=== PATIENT | female | born 1995 | race African-American/Black ===

== ENCOUNTER 2017-07-04 14:13 | Emergency (ER) | payer OTHER ==
[~2017-07-04] VITALS: Ht 160 cm; Wt 46.2 kg
[2017-07-04 14:16] VITALS: TEMP 37.2; Ht 160 cm; Wt 46.2 kg
[2017-07-04] MEDS ORDERED: ACET-1256 PO (15:03)
[2017-07-04 15:08] LABS: HEMATOCRIT 33.3 % (37-47); HEMOGLOBIN 9.7 g/dL (12.0-16.0); MEAN CELL VOLUME 61.8 fL (80-100); MEAN CORPUSCULAR HGB CONC 29.1 g/dl (32-36); PLATELET COUNT 336 K/uL (130-400); RED CELL DISTRIBUTION WIDTH CV 19.2 % (11.5-14.5); RED CELL DISTRIBUTION WIDTH SD 42.6 fL (36.4-46.3); WHITE BLOOD COUNT 12.36 K/uL (4.8-10.8)
[2017-07-04 15:14] LABS: ALBUMIN 3.7 gm/dl (3.4-5.0); CALCIUM 9.1 mg/dl (8.5-10.1); CREATININE 1.26 mg/dl (0.60-1.20); POTASSIUM 3.5 mmol/L (3.5-5.1)
--- NOTE | 2017-07-04 15:14 | EMERGENCY ROOM VISIT NOTE ---
History Report prepared by Augustus: Errol Raygoza Under the Supervision of: Dr. Rob Cerna M.D. First contact with patient: 14:20 Chief Complaint: ABDOMINAL PAIN Stated Complaint: SEVERE STOMACH PAIN ON THE L SIDE FOR 3 DAYS Nursing Triage Summary: pt reports left abd pain started wednesday. denies any n/v/d/ History of Present Illness The patient is a 21 year old female who presents to the Emergency Room with complaints of constant, left sided lower abdominal pain beginning 3 days ago. She currently rates her discomfort a 6/10 in severity, but it has been as high as a 10/10 and has woken her from her sleep. The patient states her pain radiates to the left side of her back when she leans forward. She reports she avoids moving. The patient notes she took Tylenol two days ago, and it mildly alleviated the pain, but it would return. She states she tried Rolaids this morning for possible indigestion; they did not help her symptoms. The patient reports she developed a runny nose and clogged throat several days ago. She denies a previous history of these symptoms and a family history of bowel or OB/ LADLE FILLER problems. The patient notes she had surgery 7 years ago for an ear infection. She states her LNMP was 6 months ago, and it is typically irregular. The patient reports it is not normal for her irregularity to last six months. Pt denies LOC, headache, fevers, chills, diaphoresis, visual changes, neck pain , chest pain, breathing difficulties, nausea, vomiting, melena, hematochezia, urinary symptoms, numbness, weakness, lymphadenopathy, rash, joint problems, swelling or other complaints. Onset: 3 days ago Position: abdomen (LLQ) Symptom Intensity: 6/10 currently - 10/10 worst Timing: constant Modifying Factors (Worsening): movement (leaning forward) Modifying Factors (Relieving): tylenol (mildy) Associated Symptoms: + back pain (left lower) Note: Associated symptoms: runny nose and clogged throat Review of Systems See HPI for pertinent positives and negatives. A total of ten systems were reviewed and were otherwise negative. Past Medical & Surgical Medical Problems: (1) No Known Active Medical Problems Family History Patient reports no known family medical history. Social History Smoking Status: Never Smoker Marital Status: single Occupation Status: [employer] student Current/Historical Medications Scheduled Acetaminophen (Tylenol), 1,000 MG PO PRN UD Ciprofloxacin Hcl (Cipro), 500 MG PO BID Scheduled PRN Oxycodone Ir (Roxicodone Ir), 1-2 TAB PO Q4H PRN for Pain Allergies Coded Allergies: No Known Allergies (Unverified , 07/04/17) Physical Exam Vital Signs Date Time Temp Pulse Resp B/P (MAP) Pulse Ox O2 Delivery O2 Flow Rate FiO2 07/04/17 22:42 78 20 128/72 98 07/04/17 21:03 72 20 122/70 98 Room Air 07/04/17 19:08 72 20 123/73 98 Room Air 07/04/17 16:19 65 109/75 100 Room Air 07/04/17 14:16 37.2 88 18 121/72 99 Room Air Physical Exam GENERAL: Awake, alert, well-appearing, in no distress HENT: Normocephalic, atraumatic. Oropharynx unremarkable. EYES: Normal conjunctiva. Sclera non-icteric. NECK: Supple. No nuchal rigidity. FROM. No masses. RESPIRATORY: Clear to auscultation. No wheezes. No rales. Normal respiratory effort. CARDIAC: Normal rate. Normal rhythm. No murmurs. No rubs. Extremities warm and well perfused. Pulses equal. No JVD. GI: Soft, non-distended. No tenderness to palpation. No rebound or guarding. No masses. RECTAL: Deferred. MUSCULOSKELETAL: Atraumatic. Chest examination reveals no tenderness. The back is symmetrical on inspection without obvious abnormality. Left flank is tender to palpation. There is left CVA tenderness to palpation. No joint edema. LOWER EXTREMITIES: Calves are equal size bilaterally and non-tender. No edema. No discoloration. NEURO: Normal sensorium. No sensory or motor deficits noted. SKIN: No rash or jaundice noted. Medical Decision & Procedures ER Provider Diagnostic Interpretation: Radiology results as stated below per my review and radiologist interpretation: PELVIC COMPLETE NON OB HISTORY: 21 years-old Female LLQ pain acute left lower quadrant pelvic pain COMPARISON: None available TECHNIQUE: Multiple real-time sonographic images of the deep pelvic structures were obtained transabdominally and transvaginally assessing grayscale appearance, color and spectral flow FINDINGS: Increased bowel gas limits the study. TRANSABDOMINAL: Right ovary measures 3.7 x 2.0 x 2.2 cm and is unremarkable with arterial inflow documented. Left ovary measures 3.9 x 2.0 x 2.4 cm and is also within normal limits. TRANSVAGINAL: Uterus measures 7.1 x 3.8 x 4.0 cm and is within normal limits without myometrial mass lesion. Endometrium measures 0.5 cm in thickness. Mild amount of free pelvic fluid is seen within the cul-de-sac. The right ovary measures 4.3 x 2.4 x 2.6 cm with multiple follicles noted (at least 14). No right adnexal mass lesions. Arterial inflow and venous outflow documented. Left ovary measures 3.8 x 1.8 x 2.3 cm and also demonstrates numerous follicles (at least 13) and also demonstrates arterial inflow and venous outflow. 0.9 cm hypoechoic structure adjacent to the left ovary suggests exophytic follicle or a para-ovarian cyst. IMPRESSION: 1. Unremarkable sonographic appearance of the uterus and endometrium. 2. Numerous follicles of the ovaries bilaterally may reflect polycystic ovarian syndrome within the appropriate clinical setting. 3. 0.9 cm hypoechoic structure of the left adnexum may reflect an exophytic follicle or para-ovarian cyst. 4. Mild free pelvic fluid, likely physiologic. The above report was generated using voice recognition software. It may contain grammatical, syntax or spelling errors. Electronically signed by: Placido Santos M.D. 07/04/2017 3:54 PM Dictated Date/Time: 07/04/2017 3:49 PM ABDOMEN AND PELVIS CT WITH IV AND ORAL CONTRAST CT DOSE: 249.34 mGy.cm HISTORY: Acute left-sided flank pain with leukocytosis left flank pain, US neg, 12k wbc TECHNIQUE: Multiaxial CT images of the abdomen and pelvis were performed following the use of intravenous and oral contrast. A dose lowering technique was utilized adhering to the principles of ALARA. COMPARISON STUDY: Pelvic ultrasound of same day. FINDINGS: Lung bases are clear. There is no pneumatosis or pneumoperitoneum identified. Imaged inferior cardiac chambers are unremarkable. The liver, gallbladder, spleen, pancreas and adrenal glands are within normal limits. The right kidney and right ureter are unremarkable. There is a complex 2.9 x 2.2 cm cyst of the superior pole left kidney with layering internal calcifications. There is mild to moderate hydroureteronephrosis and urothelial enhancement of the left renal pelvis and left ureter secondary to an obstructing 4 x 3 x 3 mm calculus of the left ureterovesicular junction. These findings cause associated delayed nephrogram on the left with mild left renal enlargement. Minimal left perinephric and periureteral inflammatory stranding. Uterus and adnexa are unremarkable. Mild free pelvic fluid. Aorta is normal in both course and caliber. No bulky adenopathy. There is no bowel obstruction or focal bowel wall thickening identified. Normal appendix. There is enhancing ovoid lesion of the inferolateral left breast measuring 1.5 x 0.9 cm, image 18 of series 3. The bones appear intact. 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 IMPRESSION: 1. Mild to moderate left-sided hydroureteronephrosis and delayed nephrogram secondary to an obstructing 4 x 3 x 3 mm calculus of the left ureterovesicular junction. 2. Complex cystic lesion of the superior pole left kidney demonstrates layering internal calcifications measuring up to 2.9 cm. 3. Normal appendix. 4. Mild free pelvic fluid, likely physiologic. 5. Ovoid enhancing lesion of the inferolateral left breast measures up to 1.5 cm. Correlate with breast exam. Electronically signed by: Placido Santos M.D. 07/04/2017 8:11 PM Dictated Date/Time: 07/04/2017 7:21 PM KUB HISTORY: Follow-up study to assess calculus of the distal left ureter. left kidney stone. urology request. COMPARISON: None. FINDINGS: The bowel gas pattern is non-obstructive. There is no organomegaly. Renal shadows are obscured by bowel gas. Contrast within the bowel and urinary bladder obscures the previously described calculus of the distal left ureter. There is retained contrast within the right renal collecting system. No pneumoperitoneum or pneumatosis. No fracture. IMPRESSION: Previously noted left distal ureteral calculus is obscured by contrast-filled urinary bladder. Electronically signed by: Placido Santos M.D. 07/04/2017 9:58 PM Dictated Date/Time: 07/04/2017 9:56 PM Laboratory Results 07/04/17 14:40 Red Blood Count 5.39, Mean Corpuscular Volume 61.8, Mean Corpuscular Hemoglobin 18.0, Mean Corpuscular Hemoglobin Concent 29.1, Neutrophils (%) (Auto) 80.9, Lymphocytes (%) (Auto) 9.5, Monocytes (%) (Auto) 8.9, Eosinophils (%) (Auto) 0.2 , Basophils (%) (Auto) 0.2, Neutrophils # (Auto) 10.00, Lymphocytes # (Auto) 1.17, Monocytes # (Auto) 1.10, Eosinophils # (Auto) 0.02, Basophils # (Auto) 0.03 07/04/17 14:40 Test 07/04/17 14:40 07/04/17 14:58 White Blood Count 12.36 K/uL (4.8-10.8) Red Blood Count 5.39 M/uL (4.2-5.4) Hemoglobin 9.7 g/dL (12.0-16.0) Hematocrit 33.3 % (37-47) Mean Corpuscular Volume 61.8 fL (80-100) Mean Corpuscular Hemoglobin 18.0 pg (25-34) Mean Corpuscular Hemoglobin Concent 29.1 g/dl (32-36) Platelet Count 336 K/uL (130-400) Neutrophils (%) (Auto) 80.9 % Lymphocytes (%) (Auto) 9.5 % Monocytes (%) (Auto) 8.9 % Eosinophils (%) (Auto) 0.2 % Basophils (%) (Auto) 0.2 % Neutrophils # (Auto) 10.00 K/uL (1.4-6.5) Lymphocytes # (Auto) 1.17 K/uL (1.2-3.4) Monocytes # (Auto) 1.10 K/uL (0.11-0.59) Eosinophils # (Auto) 0.02 K/uL (0-0.5) Basophils # (Auto) 0.03 K/uL (0-0.2) RDW Standard Deviation 42.6 fL (36.4-46.3) RDW Coefficient of Variation 19.2 % (11.5-14.5) Immature Granulocyte % (Auto) 0.3 % Immature Granulocyte # (Auto) 0.04 K/uL (0.00-0.02) Hypochromasia PRESENT Microcytosis PRESENT Ovalocytes 1+ Schistocytes 1+ Anion Gap 8.0 mmol/L (3-11) Est Creatinine Clear Calc Drug Dose 51.9 ml/min Estimated GFR () 71.0 Estimated GFR (Non- 61.3 BUN/Creatinine Ratio 8.9 (10-20) Calcium Level 9.1 mg/dl (8.5-10.1) Total Bilirubin 0.9 mg/dl (0.2-1) Direct Bilirubin 0.2 mg/dl (0-0.2) Aspartate Amino Transf (AST/SGOT) 24 U/L (15-37) Alanine Aminotransferase (ALT/SGPT) 24 U/L (12-78) Alkaline Phosphatase 80 U/L (45-117) Total Protein 8.2 gm/dl (6.4-8.2) Albumin 3.7 gm/dl (3.4-5.0) Lipase 130 U/L (73-393) Thyroid Stimulating Hormone (TSH) 1.810 uIu/ml (0.300-4.500) Human Chorionic Gonadotropin, Qual NEG (NEG) Urine Color DK YELLOW Urine Appearance CLEAR (CLEAR) Urine pH 6.0 (4.5-7.5) Urine Specific Twain 1.033 (1.000-1.030) Urine Protein TRACE (NEG) Urine Glucose (UA) NEG (NEG) Urine Ketones 3+ (NEG) Urine Occult Blood NEG (NEG) Urine Nitrite NEG (NEG) Urine Bilirubin NEG (NEG) Urine Urobilinogen NEG (NEG) Urine Leukocyte Esterase NEG (NEG) Urine WBC (Auto) 1-5 /hpf (0-5) Urine RBC (Auto) 0-4 /hpf (0-4) Urine Hyaline Casts (Auto) 5-10 /lpf (0-5) Urine Epithelial Cells (Auto) >30 /lpf (0-5) Urine Bacteria (Auto) 1+ (NEG) Laboratory results reviewed by me Medications Administered Medications (Trade) Dose Ordered Sig/Jerica Route Start Time Stop Time Status Last Admin Dose Admin Ondansetron HCl (Zofran Inj) 4 mg NOW STAT IV 07/04/17 18:26 07/04/17 18:27 DC 07/04/17 18:34 4 MG Hydromorphone HCl (Dilaudid Inj) 0.25 mg NOW STAT IV 07/04/17 18:26 18 18:27 DC 07/04/17 18:34 0.25 MG Ketorolac Tromethamine (Toradol Inj) 10 mg NOW STAT IV 07/04/17 20:55 07/04/17 20:56 DC 07/04/17 21:01 10 MG Sodium Chloride 500 ml @ 999 mls/hr Q31M STAT IV 07/04/17 20:56 07/04/17 21:26 DC 07/04/17 21:02 999 MLS/HR Ciprofloxacin (Cipro 500MG Home Pack) 1 homepack UD ONCE PO 07/04/17 22:30 07/04/17 22:31 DC 07/04/17 22:30 1 HOMEPACK Oxycodone HCl (Roxicodone Immediate Rel 5MG Home Pack) 1 homepack UD ONCE PO 07/04/17 22:30 07/04/17 22:31 DC 07/04/17 22:30 1 HOMEPACK Promethazine HCl (Phenergan 25MG Home Pack) 1 homepack UD ONCE PO 07/04/17 22:30 07/04/17 22:31 DC 07/04/17 22:30 1 HOMEPACK ED Course 1429: The patient was evaluated in room C12B. A complete history and physical exam was performed. Review of EMR showed no prior records for the patient. 1557: I reevaluated the patient. I updated her of her current exam findings. 1646: Upon reevaluated, the patient is resting. I updated her of her current exam findings and test results. 1805: I was informed by the nurse that the patient's abdominal pain has increased. 1826: Ordered Hydromorphone HCl 0.25mg IV, Ondansetron HCl 4mg IV 5: Ordered Ketorolac Tromethamine 10 mg IV 2055: Ordered Sodium Chloride 500 ml @ 999 mls/hr IV 2102: I discussed the patient's case with Dr. Smith, Urology. He suggested the patient be placed on an antibiotic, receive pain medication, and follow up with an office visit. He also recommended I order a KUB. 2137: I reevaluated the patient and updated her of my discussion with Dr. Smith. The KUB is being performed right now. 5: I reevaluated the patient. Discussed results and discharge instructions: she verbalized understanding and agreement. The patient is ready for discharge when she receives her medication. 2230: Ordered Promethazine HCl 1 homepack PO, Oxycodone HCl 1 homepack PO, Ciprofloxacin 1 homepack PO Medical Decision Triage Nursing notes reviewed and agree them. The patient's history was concerning for abdominal pain. Differential diagnosis: Etiologies such as diverticulitis, UTI, inflammatory bowel disease, renal colic, ovarian pathology, , PID, appendicitis,pancreatitis, obstruction, mesenteric ischemia, PUD, biliary pathology,aortic pathology, infections,as well as others were entertained. Physical examination findings: As above. ER treatment provided: Patient declined analgesia Her pain increased and the patient was given IV Dilaudid and Zofran. She was hydrated The patient felt much better. She was given IV Toradol On reassessment the patient felt well. Cipro home pack OxyIR home pack Phenergan home pack Diagnostics interpreted by me: The labs revealed a moderate leukocytosis and mild anemia on CBC. CBC and urinalysis were unremarkable. The patient is not . Chemistry panel unremarkable. Urinalysis revealed no signs of infection. Imaging studies: Ultrasound, KUB, and CT scan as above The patient has a sizable kidney stone. She also has numerous cysts on both ovaries that were not related to her visit today. She has a cyst in the left kidney as well. She will need urology follow-up. I did have a discussion with her about LADLE FILLER follow-up. She will contact women's health at [facility] for this. Consultation: A consultation was placed with the urologist on-call, Dr. Smith. The case was discussed and diagnostics were reviewed. He recommended that the patient have pain medication and close follow-up in his office. He did request a KUB. He also advised for the patient to be started on Cipro and to have urine culture performed. This was done. Medication Reconcilliation Current Medication List: was personally reviewed by me Blood Pressure Screening Patient's blood pressure: Normal blood pressure Blood pressure disposition: Did not require urgent referral Consults Time Called: 2049 Consulting Physician: Dr. Smith, Urology Returned Call: 2102 I discussed the patient's case with Dr. Smith, Urology. He suggested the patient be placed on an antibiotic, receive pain medication, and follow up with an office visit. He also recommended I order a KUB. Impression Primary Impression: Ureterolithiasis Additional Impressions: Renal cyst, left Bilateral ovarian cysts Scribe Attestation The scribe's documentation has been prepared under my direction and personally reviewed by me in its entirety. I confirm that the note above accurately reflects all work, treatment, procedures, and medical decision making performed by me. Departure Information Dispostion Home / Self-Care Prescriptions Ciprofloxacin Hcl (CIPRO) 500 Mg Tab 500 MG PO BID, #8 TAB Prov: Rob Cerna MD 07/04/17 Oxycodone Ir (Roxicodone Ir) 5 Mg Tab 1-2 TAB PO Q4H Y for Pain, #15 TAB Prov: Rob Cerna MD 07/04/17 Forms HOME CARE DOCUMENTATION FORM, IMPORTANT VISIT INFORMATION Patient Instructions My [facility] Additional Instructions KIDNEY STONE INSTRUCTIONS: Oxycodone Immediate Release (OxyIR) 5mg: Take 1 pill every four hours for pain. If the pain is severe you can take up to 2 every 4 hours. Avoid alcohol, operating machinery or dangerous equipment, working on ladders or roofs, DRIVING , or situations where being under the influence may be dangerous. It is recommended to use an [id number] stool softener such as Colace, 100mg twice daily while taking this medication to avoid constipation. Ciprofloxacin 500mg: Take one pill twice daily for 5 days for your urine. All antibiotics can cause diarrhea. If this occurs and you feel worse or it does not resolve in 1-2 days follow up with your doctor or return to the Emergency Department as this could be signs of serious underlying problems. Any medication can cause an allergic reaction or complication, stop the pills immediately and return to the ER for rash, hives, breathing difficulties, tendon pain, tendon injury, or swelling. Phenergan 25mg: Take one every six hours as needed for nausea. Avoid alcohol, operating machinery or dangerous equipment, working on ladders or roofs, DRIVING , or situations where being under the influence may be dangerous. Ibuprofen(Motrin, Advil) may be used for fever or pain. Use 600mg every six hours as needed. Take with food. Avoid using more than 2400mg in a 24 hour period. Do not use 2400mg per day for more than three consecutive days without physician direction. Prolonged inappropriate use can lead to stomach upset or ulcers. This medication can be taken if you need to drive, work, or perform activities which may be dangerous when taking narcotic pain medication. (AND/OR) Acetaminophen(Tylenol) may be used for fever or pain. Use 1000mg every six hours as needed. Avoid using more than 4000mg in a 24 hour period. This medication can be taken if you need to drive, work, or perform activities which may be dangerous when taking narcotic pain medication. Strain your urine and collect all the stones or debris for the urologists. Rest and avoid strenuous activity until your stone passes and symptoms resolve. Drink plenty of fluids. Return to the ER for worsening abdominal or back pain, vomiting, fevers, passing out, or as needed. Follow up with [facility] tomorrow, [phone], to arrange a visit. Tell the traveling secretary that you were in the ER Wednesday and Dr. Smith was made aware. Problem Qualifiers
[2017-07-04 15:15] LABS: BASO % 0.2 %; BASO ABS # 0.03 K/uL (0-0.2); EOS % 0.2 %; EOS ABS # 0.02 K/uL (0-0.5); IG# 0.04 K/uL (0.00-0.02); LYMPH % 9.5 %; LYMPH ABS # 1.17 K/uL (1.2-3.4); MONO % 8.9 %; NEUT % 80.9 %
[2017-07-04 15:17] LABS: TOTAL PROTEIN 8.2 gm/dl (6.4-8.2)
--- NOTE | 2017-07-04 15:55 | DIAGNOSTIC IMAGING REPORT ---
PELVIC COMPLETE NON OB HISTORY: 21 years-old Female LLQ pain acute left lower quadrant pelvic pain COMPARISON: None available TECHNIQUE: Multiple real-time sonographic images of the deep pelvic structures were obtained transabdominally and transvaginally assessing grayscale appearance, color and spectral flow FINDINGS: Increased bowel gas limits the study. TRANSABDOMINAL: Right ovary measures 3.7 x 2.0 x 2.2 cm and is unremarkable with arterial inflow documented. Left ovary measures 3.9 x 2.0 x 2.4 cm and is also within normal limits. TRANSVAGINAL: Uterus measures 7.1 x 3.8 x 4.0 cm and is within normal limits without myometrial mass lesion. Endometrium measures 0.5 cm in thickness. Mild amount of free pelvic fluid is seen within the cul-de-sac. The right ovary measures 4.3 x 2.4 x 2.6 cm with multiple follicles noted (at least 14). No right adnexal mass lesions. Arterial inflow and venous outflow documented. Left ovary measures 3.8 x 1.8 x 2.3 cm and also demonstrates numerous follicles (at least 13) and also demonstrates arterial inflow and venous outflow. 0.9 cm hypoechoic structure adjacent to the left ovary suggests exophytic follicle or a para-ovarian cyst. IMPRESSION: 1. Unremarkable sonographic appearance of the uterus and endometrium. 2. Numerous follicles of the ovaries bilaterally may reflect polycystic ovarian syndrome within the appropriate clinical setting. 3. 0.9 cm hypoechoic structure of the left adnexum may reflect an exophytic follicle or para-ovarian cyst. 4. Mild free pelvic fluid, likely physiologic. The above report was generated using voice recognition software. It may contain grammatical, syntax or spelling errors. Electronically signed by: Placido Santos M.D. 07/04/2017 3:54 PM Dictated Date/Time: 07/04/2017 3:49 PM
[2017-07-04] MEDS ORDERED: HYDROmorphone INJ 0.5 MG/0.5 ML SYR IV STA (18:26)
[2017-07-04] MEDS ORDERED: ONDANSETRON INJ 2 MG/ML 2 ML VIAL IV STA (18:26)
[2017-07-04] MEDS ORDERED: OPTIRAY 320 IV PRN (19:15)
--- NOTE | 2017-07-04 20:13 | DIAGNOSTIC IMAGING REPORT ---
ABDOMEN AND PELVIS CT WITH IV AND ORAL CONTRAST CT DOSE: 249.34 mGy.cm HISTORY: Acute left-sided flank pain with leukocytosis left flank pain, US neg, 12k wbc TECHNIQUE: Multiaxial CT images of the abdomen and pelvis were performed following the use of intravenous and oral contrast. A dose lowering technique was utilized adhering to the principles of ALARA. COMPARISON STUDY: Pelvic ultrasound of same day. FINDINGS: Lung bases are clear. There is no pneumatosis or pneumoperitoneum identified. Imaged inferior cardiac chambers are unremarkable. The liver, gallbladder, spleen, pancreas and adrenal glands are within normal limits. The right kidney and right ureter are unremarkable. There is a complex 2.9 x 2.2 cm cyst of the superior pole left kidney with layering internal calcifications. There is mild to moderate hydroureteronephrosis and urothelial enhancement of the left renal pelvis and left ureter secondary to an obstructing 4 x 3 x 3 mm calculus of the left ureterovesicular junction. These findings cause associated delayed nephrogram on the left with mild left renal enlargement. Minimal left perinephric and periureteral inflammatory stranding. Uterus and adnexa are unremarkable. Mild free pelvic fluid. Aorta is normal in both course and caliber. No bulky adenopathy. There is no bowel obstruction or focal bowel wall thickening identified. Normal appendix. There is enhancing ovoid lesion of the inferolateral left breast measuring 1.5 x 0.9 cm, image 18 of series 3. The bones appear intact. 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 IMPRESSION: 1. Mild to moderate left-sided hydroureteronephrosis and delayed nephrogram secondary to an obstructing 4 x 3 x 3 mm calculus of the left ureterovesicular junction. 2. Complex cystic lesion of the superior pole left kidney demonstrates layering internal calcifications measuring up to 2.9 cm. 3. Normal appendix. 4. Mild free pelvic fluid, likely physiologic. 5. Ovoid enhancing lesion of the inferolateral left breast measures up to 1.5 cm. Correlate with breast exam. Electronically signed by: Placido Santos M.D. 07/04/2017 8:11 PM Dictated Date/Time: 07/04/2017 7:21 PM
[2017-07-04] MEDS ORDERED: KETOROLAC TROMETHAMINE 30 MG/ML VIAL IV STA (20:55)
[2017-07-04] MEDS ORDERED: SODIUM CHLORIDE 0.9% 500ML 500 ML IV STA (20:56)
--- NOTE | 2017-07-04 21:59 | DIAGNOSTIC IMAGING REPORT ---
KUB HISTORY: Follow-up study to assess calculus of the distal left ureter. left kidney stone. urology request. COMPARISON: None. FINDINGS: The bowel gas pattern is non-obstructive. There is no organomegaly. Renal shadows are obscured by bowel gas. Contrast within the bowel and urinary bladder obscures the previously described calculus of the distal left ureter. There is retained contrast within the right renal collecting system. No pneumoperitoneum or pneumatosis. No fracture. IMPRESSION: Previously noted left distal ureteral calculus is obscured by contrast-filled urinary bladder. Electronically signed by: Placido Santos M.D. 07/04/2017 9:58 PM Dictated Date/Time: 07/04/2017 9:56 PM
[2017-07-04] MEDS ORDERED: CIPR-255 PO (22:27)
[2017-07-04] MEDS ORDERED: OXYC1TAB3 PO (22:27)
[2017-07-04] MEDS ORDERED: OXYCODONE IR HOME PACK PO ONE (22:30)
[2017-07-04] MEDS ORDERED: CIPROFLOXACIN 500MG HOME PACK PO ONE (22:30)
[2017-07-04] MEDS ORDERED: PHENERGAN 25MG HOMEPACK PO ONE (22:30)
[2017-07-04 22:42] VITALS: BP 128/72; PULSE 78; O2SAT 98
== END 2017-07-04 22:43 | disposition home or self-care (01) ==
LOC: C.EDB 14:15 → C.EDC 22:43
DX: N20.1 Calculus of ureter (principal); N83.201 Unspecified ovarian cyst, right side; N83.202 Unspecified ovarian cyst, left side; N28.1 Cyst of kidney, acquired; D72.829 Elevated white blood cell count, unspecified; D64.9 Anemia, unspecified; R09.89 Other specified symptoms and signs involving the circulatory and respiratory systems